=== PATIENT | female | born 1960 | race Two or more races ===

== ENCOUNTER 2023-01-04 13:30 | Emergency (ER) | payer OTHER ==
[~2023-01-04] VITALS: Ht 152.4 cm; Wt 41.7 kg
[2023-01-04] MEDS ORDERED: PRAVASTATIN SOD20 MG PO (13:44)
[2023-01-04] MEDS ORDERED: ADULT LOW DOSE81 M1 PO (13:44)
== END 2023-01-04 20:56 | disposition home or self-care (01) ==
LOC: ER 13:30
DX: R10.31 Right lower quadrant pain (principal); Z88.0 Allergy status to penicillin; Z91.013 Allergy to seafood